=== PATIENT | male | born 1975 | race Caucasian/White ===

== ENCOUNTER → 2018-08-14 | Outpatient (CLI) | payer OTHER ==
--- NOTE | 2018-08-14 15:08 | REP ---
Clinical: Sternal pain. Technique: Oblique and lateral views of the sternum. Findings: Limited evaluation. Sternum is grossly unremarkable. If the patient remains symptomatic consider CT for further investigation. Impression: Grossly unremarkable sternal radiographs. Electronically Signed by Raza Plummer MD 08/14/2018 03:00 P
== END ==
LOC: M RAD 14:14
DX: R07.89 Other chest pain (principal)

== ENCOUNTER 2020-07-25 09:22 | Emergency (ER) | payer OTHER ==
[~2020-07-25] VITALS: Ht 185.4 cm; Wt 117.4 kg
--- OUTSIDE RECORDS SUMMARY | 2020-07-25 09:33 | CCD ---
Author Author [facility] Organization [facility] Address Unknown Phone Unavailable Support Name Relationship Address Phone [address] DA[place] Next Of Kin [id number] [facility] [address] [place] [address] [employer] Next Of Kin [id number] [facility] [address] [place] [address] DOE DAVIS Next Of Kin [address] [place] [address] [address] [place] [address] [place] Next Of Kin Unknown Unavailable [place] Next Of Kin [address] [place] [address] SUSAN, S LUMA Next Of Kin [address] [place] [address] HOME CATHERINE DAVIS Next Of Kin [id number] [place] [address] [address] [place] [address] Re-disclosure Warning The records that you are about to access may contain information from federally-assisted alcohol or drug abuse programs. If such information is present, then the following federally mandated warning applies: This information has been disclosed to you from records protected by federal confidentiality rules (42 CFR part 2). The federal rules prohibit you from making any further disclosure of this information unless further disclosure is expressly permitted by the written consent of the person to whom it pertains or as otherwise permitted by 42 CFR part 2. A general authorization for the release of medical or other information is NOT sufficient for this purpose. The Federal rules restrict any use of the information to criminally investigate or prosecute any alcohol or drug abuse patient.The records that you are about to access may contain highly sensitive health information, the redisclosure of which is protected by Article 27-F of the [facility] Public Health law. If you continue you may have access to information: Regarding HIV / AIDS; Provided by facilities licensed or operated by the [facility] Office of Mental Health; or Provided by the [facility] Office for People With Developmental Disabilities. If such information is present, then the following [facility] mandated warning applies: This information has been disclosed to you from confidential records which are protected by state law. State law prohibits you from making any further disclosure of this information without the specific written consent of the person to whom it pertains, or as otherwise permitted by law. Any unauthorized further disclosure in violation of state law may result in a fine or shelter sentence or both. A general authorization for the release of medical or other information is NOT sufficient authorization for further disc losure. Insurance Providers Payer name Policy type / Coverage type Policy ID Covered democrat ID Covered democrat's relationship to mills Policy Mills Plan Information [facility] [id number] [facility] [id number] [facility] ASG [id number] SELF PAY UNAVAILABLE Patient UNAVAILA BLE
[2020-07-25] MEDS ORDERED: NS 1,000 ML IV ONE (10:00)
[2020-07-25 10:03] LABS: BASO % 0.6 % (0.0-1.0); EOS # 0.2 10^3/uL (0.0-0.5); EOS % 2.2 % (0.0-3.0); HEMATOCRIT 44.5 % (42.0-52.0); HEMOGLOBIN 15.2 g/dl (13.5-17.5); LYMPH # 1.5 10^3/uL (1.5-5.0); LYMPH % 21.3 % (24.0-44.0); MEAN CORPUSCULAR HEMOGLOBIN 27.4 pg (27.0-33.0); MEAN CORPUSCULAR HGB CONC 34.2 g/dl (32.0-36.5); MEAN CORPUSCULAR VOLUME 80.2 fl (80.0-96.0); MONO # 0.5 10^3/uL (0.0-0.8); MONO % 7.4 % (0.0-5.0); NEUTROPHILS # 4.9 10^3/uL (1.5-8.5); NEUTROPHILS % 68.2 % (36.0-66.0); PLATELET COUNT, AUTOMATED 204 10^3/uL (150-450); RED BLOOD COUNT 5.55 10^6/uL (4.30-6.10); WHITE BLOOD COUNT 7.1 10^3/uL (4.0-10.0)
--- NOTE | 2020-07-25 10:08 | REP ---
INDICATION: blurry vission/elevated glucose. COMPARISON: None. TECHNIQUE: Helical scanning is acquired. 5 mm axial images were reformatted. Coronal MPR images were generated. FINDINGS: Bone window settings demonstrate an intact bony calvarium. There is no evidence of skull fracture or incidental bony calvarial lesion. The visualized paranasal sinuses appear clear. No intraorbital abnormality is seen. On soft tissue window setting images; the lateral, third, and fourth ventricles are normal in size and position. Hurtado-white differentiation pattern is normal above and below the tentorium. There are is no evidence of intracranial hemorrhage. No mass, edema, infarction, or midline shift is seen. No extra-axial fluid collection is appreciated. IMPRESSION: Negative noncontrast head CT. <Electronically signed by Gabe Grace > 07/25/20 [id number]
--- OUTSIDE RECORDS SUMMARY | 2020-07-25 10:12 | CCD ---
Author Author [facility] Organization [facility] Address Unknown Phone Unavailable Support Name Relationship Address Phone [address] DAIRY Next Of Kin [id number] [facility] [address] [place] [address] Next Of Kin [address] [facility] [address] [place] [address] DOE DAVIS Next Of Kin [address] [place] [address] [address] [place] [address] [place] Next Of Kin Unknown Unavailable MARKSDAIRY Next Of Kin [address] [place] [address] SUSAN, S LUMA Next Of Kin [address] [place] [address] HOME CATHERINE DAVIS Next Of Kin [id number] [place] [address] [address] [place] [address] Re-disclosure Warning The records that you are [...] by Article 27-F of the [facility] Public Health law. If you continue you may have access to information: Regarding HIV / AIDS; Provided by facilities licensed or operated by the [facility] Office of Mental Health; or Provided by the [facility] Office for People With Developmental Disabilities. If such information is present, then the following [facility] mandated warning applies: This information has been [...] law may result in a fine or halfway sentence or both. A general authorization for the release of medical or other information is NOT sufficient authorization for further disc losure. Insurance Providers Payer name Policy type / Coverage type Policy ID Covered green party ID Covered green party's relationship to mills Policy Mills Plan Information [facility] [id number] [facility] [id number] [facility] ASG [id number] SELF PAY UNAVAILABLE Patient UNAVAILA BLE
[2020-07-25] MEDS ORDERED: HumuLIN R (REGULAR) INSULIN (NovoLIN R) **100U/ML** PER UNIT SC STA (10:13)
[2020-07-25 10:25] LABS: OSMOLALITY SERUM 304 MOSM/KG (275-295)
[2020-07-25 10:47] LABS: ACETONE/KETONE 7.11 MG/DL (<2.81); ALBUMIN 3.5 GM/DL (3.2-5.2); ALT/SGPT 18 U/L (12-78); BILIRUBIN,DIRECT < 0.1 MG/DL (0.0-0.2); BILIRUBIN,TOTAL 0.3 MG/DL (0.2-1.0); BLOOD UREA NITROGEN 18 MG/DL (7-18); CALCIUM LEVEL 9.7 MG/DL (8.5-10.1); CARBON DIOXIDE LEVEL 27 MEQ/L (21-32); CHLORIDE LEVEL 98 MEQ/L (98-107); CREATININE FOR GFR 0.83 MG/DL (0.70-1.30); GLOMERULAR FILTRATION RATE > 60.0 (>60); GLUCOSE, FASTING 457 MG/DL (70-100); LIPASE 170 U/L (73-393); POTASSIUM SERUM 4.4 MEQ/L (3.5-5.1); SODIUM LEVEL 133 MEQ/L (136-145); TOTAL PROTEIN 7.3 GM/DL (6.4-8.2)
[2020-07-25 11:25] LABS: HEMOGLOBIN A1c 13.2 %
[2020-07-25] MEDS ORDERED: HumaLOG INSULIN (NovoLOG) PER UNIT SC STA (12:36)
[2020-07-25] MEDS ORDERED: metFORMIN (GLUCOPHAGE) 500 MG TAB PO ONE (12:45)
[2020-07-25] MEDS ORDERED: METF500T13 PO (13:51)
[2020-07-25] MEDS ORDERED: LISI20TA33 PO (13:51)
[2020-07-25 14:06] VITALS: BP 153/107
== END 2020-07-25 14:14 | disposition home or self-care (01) ==
LOC: M ED 09:22
DX: E11.9 Type 2 diabetes mellitus without complications (principal); I10 Essential (primary) hypertension; Z79.899 Other long term (current) drug therapy; Z79.84 Long term (current) use of oral hypoglycemic drugs

== ENCOUNTER → 2020-11-12 | Outpatient (REF) | payer OTHER ==
[~2020-11-12] MED LIST: ERGO500029; JARD1TAB3; LISI20TA33 PO; LISI30TA4; METF500T13 PO; TELM1TAB37 PO; TRES1INJ2
[2020-11-12 15:51] LABS: ALBUMIN 3.5 GM/DL (3.2-5.2); ALT/SGPT 15 U/L (12-78); BILIRUBIN,TOTAL 0.5 MG/DL (0.2-1.0); BLOOD UREA NITROGEN 12 MG/DL (7-18); CARBON DIOXIDE LEVEL 25 MEQ/L (21-32); CHLORIDE LEVEL 105 MEQ/L (98-107); CHOLESTEROL LEVEL 183 MG/DL (<200); CHOLESTEROL RISK RATIO 3.978 (<5); CREATININE FOR GFR 0.54 MG/DL (0.70-1.30); FREE T4 1.02 NG/DL (0.76-1.46); GLOMERULAR FILTRATION RATE > 60.0 (>60); GLUCOSE, FASTING 162 MG/DL (70-100); HDL CHOLESTEROL 46 MG/DL (>40); LDL CHOLESTEROL 87 MG/DL (<100); NON-HDL-C 137 MG/DL; POTASSIUM SERUM 3.4 MEQ/L (3.5-5.1); SODIUM LEVEL 138 MEQ/L (136-145); TOTAL 25(OH) VITAMIN D 12.7 NG/ML (30.0-100.0); TOTAL PROTEIN 7.3 GM/DL (6.4-8.2); TRIGLYCERIDES LEVEL 250 MG/DL (<150)
[2020-11-12 16:38] LABS: HEMOGLOBIN A1c 10.2 %
[2020-11-12 16:51] LABS: MAU/CREAT RATIO 1007.6 MCG/MG (0.0-30.0)
== END ==
LOC: M PLALAB 13:34
PROVIDERS: ATTEND Nurse Practitioner Family
DX: E55.9 Vitamin D deficiency, unspecified (principal); E11.9 Type 2 diabetes mellitus without complications; Z13.220 Encounter for screening for lipoid disorders

== ENCOUNTER 2020-11-21 10:22 | Emergency (ER) | payer OTHER ==
[~2020-11-21] VITALS: Ht 190.5 cm; Wt 124.8 kg
[~2020-11-21 10:22] MED LIST changes: -ERGO500029; -JARD1TAB3; -LISI30TA4; -TELM1TAB37 PO; -TRES1INJ2
[2020-11-21] MEDS ORDERED: TRES1INJ2 (10:35)
[2020-11-21] MEDS ORDERED: VITA50005 (10:35)
[2020-11-21] MEDS ORDERED: LISI30TA4 (10:35)
[2020-11-21] MEDS ORDERED: JARD1TAB3 (10:35)
[2020-11-21] MEDS ORDERED: TELM1TAB37 PO (12:49)
[2020-11-21 13:00] VITALS: BP 138/98
--- NOTE | 2020-11-21 21:07 | ECGEPIP ---
[facility] - ED Test Date: 2020-11-21 Pat Name: RUY DAVIS Department: Room: - Gender: Male Regional Merchandising Manager: LILIBETH : 1975 Requested By: Andrea Loaiza Order Number: [id number] Reading MD: Andrea Dumont Measurements Intervals [place] Rate: 81 P: 58 [place]: 176 QRS: -29 QRSD: 90 T: 32 QT: 378 QTc: 439 Interpretive Statements Normal sinus rhythm Nonspecific T wave abnormality NO PRIORS FOR COMPARISON Electronically Signed on 11-21-2020 21:07:47 EDT by Andrea Dumont
== END 2020-11-21 13:00 | disposition home or self-care (01) ==
LOC: M ED 10:22
DX: I10 Essential (primary) hypertension (principal); E11.9 Type 2 diabetes mellitus without complications; Z79.899 Other long term (current) drug therapy; Z79.4 Long term (current) use of insulin

== ENCOUNTER → 2020-11-26 | Outpatient (REF) | payer OTHER ==
[~2020-11-26] MED LIST changes: +JARD1TAB3; +LISI30TA4; +TELM1TAB37 PO; +TRES1INJ2; +VITA50005
[2020-11-26 18:22] LABS: ALBUMIN 3.7 GM/DL (3.2-5.2); BLOOD UREA NITROGEN 14 MG/DL (7-18); CALCIUM LEVEL 9.1 MG/DL (8.5-10.1); CARBON DIOXIDE LEVEL 24 MEQ/L (21-32); CHLORIDE LEVEL 100 MEQ/L (98-107); CREATININE FOR GFR 0.63 MG/DL (0.70-1.30); GLOMERULAR FILTRATION RATE > 60.0 (>60); GLUCOSE, FASTING 201 MG/DL (70-100); POTASSIUM SERUM 3.7 MEQ/L (3.5-5.1); SODIUM LEVEL 136 MEQ/L (136-145)
== END ==
LOC: M PLALAB 14:37
PROVIDERS: ATTEND Nurse Practitioner Family
DX: E11.9 Type 2 diabetes mellitus without complications (principal); I10 Essential (primary) hypertension

== ENCOUNTER → 2020-12-10 | Outpatient (CLI) | payer OTHER ==
[~2020-12-10] MED LIST changes: +ERGO500029; -VITA50005
--- NOTE | 2020-12-10 09:56 | REP ---
INDICATION: HTN. COMPARISON: None. TECHNIQUE: Bilateral renal ultrasound with bilateral renal arterial Doppler FINDINGS: Multiple ultrasonographic images of the right kidney show the right kidney to measure 15.4 x 8 x 5.4 cm. The renal cortical echotexture is unremarkable. There are no masses. There is good corticomedullary differentiation. There is no hydronephrosis. There are no perinephric fluid collections. Multiple ultrasonographic images of the left kidney show the left kidney to measure 15.2 x 7.4 x 6.7 cm. The renal cortical echotexture is unremarkable. There are no masses. There is good corticomedullary differentiation. There is no hydronephrosis. There are no perinephric fluid collections. The peak aortic systolic velocity is 103 cm/S EC On the right: The peak renal artery systolic velocity is 150 cm/S EC The renal aortic ratio is 1.46 The resistive index in the upper pole is 0.64, midpole 0.56, lower pole 0.58 The acceleration time in the upper pole is 0.046, midpole 0.040, lower pole 0.044 On the left: The peak renal artery systolic velocity is 102 cm/S EC The renal aortic ratio is 0.99 The resistive index upper pole 0.58, midpole 0.53, lower pole 0.55 Acceleration time upper pole 0.042, midpole 0.032, lower pole 0.042 IMPRESSION: Unremarkable renal ultrasonography. There is no evidence of renal arterial stenosis. <Electronically signed by Jatinder Palomo > 12/10/20 0953
== END ==
LOC: M RAD 08:46
PROVIDERS: ATTEND Nurse Practitioner Family
DX: I10 Essential (primary) hypertension (principal)

== ENCOUNTER → 2021-04-11 | Outpatient (CLI) | payer OTHER ==
[2021-04-11 11:09] LABS: ALBUMIN 3.3 GM/DL (3.2-5.2); ALT/SGPT 21 U/L (12-78); BILIRUBIN,TOTAL 0.5 MG/DL (0.2-1.0); BLOOD UREA NITROGEN 9 MG/DL (7-18); CALCIUM LEVEL 8.5 MG/DL (8.5-10.1); CARBON DIOXIDE LEVEL 22 MEQ/L (21-32); CHLORIDE LEVEL 102 MEQ/L (98-107); CHOLESTEROL LEVEL 244 MG/DL (<200); CHOLESTEROL RISK RATIO 6.594 (<5); CREATININE FOR GFR 0.63 MG/DL (0.70-1.30); GLOMERULAR FILTRATION RATE > 60.0 (>60); GLUCOSE, FASTING 294 MG/DL (70-100); HDL CHOLESTEROL 37 MG/DL (>40); NON-HDL-C 207 MG/DL; POTASSIUM SERUM 3.8 MEQ/L (3.5-5.1); SODIUM LEVEL 134 MEQ/L (136-145); TOTAL PROTEIN 7.4 GM/DL (6.4-8.2); TRIGLYCERIDES LEVEL 1133 MG/DL (<150)
[2021-04-11 11:26] LABS: CREATININE, URINE 45.9 MG/DL; MAU/CREAT RATIO 862.7 MCG/MG (0.0-30.0)
[2021-04-11 11:49] LABS: HEMOGLOBIN A1c 12.1 %
== END ==
LOC: M LAB 08:57
PROVIDERS: ATTEND Nurse Practitioner Family
DX: E78.5 Hyperlipidemia, unspecified (principal); E11.9 Type 2 diabetes mellitus without complications

== ENCOUNTER 2021-12-21 06:14 | Emergency (ER) | payer OTHER ==
[~2021-12-21] VITALS: Ht 188 cm; Wt 118.2 kg
[2021-12-21] MEDS ORDERED: NOVOINJ3 SC (06:35)
[2021-12-21] MEDS ORDERED: NS 1,000 ML IV ONE ×2 (07:25→08:45)
[2021-12-21 08:15] LABS: BASO % 0.3 % (0.0-1.0); EOS # 0.1 10^3/uL (0.0-0.5); EOS % 1.3 % (0.0-3.0); HEMATOCRIT 46.8 % (42.0-52.0); LYMPH # 0.5 10^3/uL (1.5-5.0); LYMPH % 7.8 % (24.0-44.0); MEAN CORPUSCULAR HEMOGLOBIN 27.2 pg (27.0-33.0); MEAN CORPUSCULAR HGB CONC 34.2 g/dl (32.0-36.5); MEAN CORPUSCULAR VOLUME 79.6 fl (80.0-96.0); MONO # 0.4 10^3/uL (0.0-0.8); MONO % 6.2 % (2.0-8.0); NEUTROPHILS # 5.7 10^3/uL (1.5-8.5); NEUTROPHILS % 84.1 % (36.0-66.0); PLATELET COUNT, AUTOMATED 176 10^3/uL (150-450); RED BLOOD COUNT 5.88 10^6/uL (4.30-6.10); WHITE BLOOD COUNT 6.8 10^3/uL (4.0-10.0)
[2021-12-21 08:34] LABS: ALBUMIN 3.2 GM/DL (3.2-5.2); ALT/SGPT 14 U/L (12-78); BILIRUBIN,DIRECT 0.2 MG/DL (0.0-0.2); BILIRUBIN,TOTAL 0.7 MG/DL (0.2-1.0); BLOOD UREA NITROGEN 11 MG/DL (7-18); CALCIUM LEVEL 8.5 MG/DL (8.5-10.1); CARBON DIOXIDE LEVEL 20 MEQ/L (21-32); CHLORIDE LEVEL 103 MEQ/L (98-107); CREATININE FOR GFR 0.64 MG/DL (0.70-1.30); GLOMERULAR FILTRATION RATE > 60.0 (>60); GLUCOSE, FASTING 338 MG/DL (70-100); POTASSIUM SERUM 3.9 MEQ/L (3.5-5.1); SODIUM LEVEL 134 MEQ/L (136-145)
[2021-12-21 10:02] VITALS: BP 148/91
== END 2021-12-21 10:04 | disposition home or self-care (01) ==
LOC: M ED 06:14
DX: E11.65 Type 2 diabetes mellitus with hyperglycemia (principal); R19.7 Diarrhea, unspecified; I10 Essential (primary) hypertension; Z79.899 Other long term (current) drug therapy; Z79.84 Long term (current) use of oral hypoglycemic drugs; Z79.4 Long term (current) use of insulin; F17.220 Nicotine dependence, chewing tobacco, uncomplicated

== ENCOUNTER 2023-12-30 09:08 | Emergency (ER) | payer OTHER ==
[~2023-12-30] VITALS: Ht 185.4 cm; Wt 107.7 kg
[~2023-12-30 09:08] MED LIST changes: +NOVOINJ3 SC
[2023-12-30] MEDS ORDERED: LISI40TA4 PO (09:26)
[2023-12-30] MEDS ORDERED: METO50TA7 PO (09:26)
[2023-12-30] MEDS ORDERED: AMOX875T2 PO (12:06)
[2023-12-30] MEDS ORDERED: ONDA-282 PO (12:06)
[2023-12-30] MEDS ORDERED: MECL50TA PO (12:06)
[2023-12-30 12:37] VITALS: BP 155/90; TEMP 97.1; O2SAT 96
== END 2023-12-30 12:38 | disposition home or self-care (01) ==
LOC: M ED 09:08
DX: H66.001 Acute suppurative otitis media without spontaneous rupture of ear drum, right ear (principal); J06.9 Acute upper respiratory infection, unspecified; I10 Essential (primary) hypertension; Z79.2 Long term (current) use of antibiotics; Z79.84 Long term (current) use of oral hypoglycemic drugs; Z79.899 Other long term (current) drug therapy

== ENCOUNTER 2024-05-30 11:18 | Emergency (ER) | payer OTHER ==
[~2024-05-30] VITALS: Ht 188 cm; Wt 111.0 kg
[~2024-05-30 11:18] MED LIST changes: +AMOX875T2 PO; +LISI40TA4 PO; +MECL50TA PO; +METO50TA7 PO; +ONDA-282 PO
[2024-05-30] MEDS ORDERED: LANTINJ4 SC (11:42)
[2024-05-30] MEDS: TETRACAINE 0.5% OPHTH SOLN 4ML OD ONE (16:50)
[2024-05-30 17:54] LABS: BASO % 0.6 % (0.0-1.0); EOS # 0.3 10^3/uL (0.0-0.5); EOS % 3.7 % (0.0-3.0); HEMATOCRIT 43.9 % (42.0-52.0); HEMOGLOBIN 15.7 g/dl (13.5-17.5); LYMPH # 2.1 10^3/uL (1.5-5.0); LYMPH % 30.7 % (24.0-44.0); MEAN CORPUSCULAR HEMOGLOBIN 28.2 pg (27.0-33.0); MEAN CORPUSCULAR HGB CONC 35.8 g/dl (32.0-36.5); MEAN CORPUSCULAR VOLUME 78.8 fl (80.0-96.0); MONO # 0.7 10^3/uL (0.0-0.8); MONO % 10.1 % (2.0-8.0); NEUTROPHILS # 3.7 10^3/uL (1.5-8.5); NEUTROPHILS % 54.6 % (36.0-66.0); PLATELET COUNT, AUTOMATED 192 10^3/uL (150-450); RED BLOOD COUNT 5.57 10^6/uL (4.30-6.10); WHITE BLOOD COUNT 6.8 10^3/uL (4.0-10.0)
[2024-05-30 18:14] LABS: CK-MB VALUE MASS 1.1 NG/ML (<3.6)
[2024-05-30 18:16] LABS: C REACTIVE PROTEIN QUANTITATIV < 0.50 MG/DL (<1.0)
[2024-05-30 18:17] LABS: CPK CREATINE PHOSPHOKINASE 58 U/L (46-171); MB/CK RELATIVE INDEX 1.89 (< OR =4)
[2024-05-30 18:18] LABS: THYROID STIMULATING HORMONE 2.469 uIU/ML (0.55-4.78); THYROXINE (T4) 8.5 UG/DL (4.5-10.9)
[2024-05-30 18:26] LABS: ERYTHROCYTE SEDIMENTATION RATE 30 mm/hr (0-15)
[2024-05-30 18:34] LABS: ALBUMIN 3.2 G/DL (3.2-5.2); ALKALINE PHOSPHATASE 212 U/L (40-129); ALT/SGPT 11 U/L (7.0-40); AST/SGOT < 8 U/L (<34); BILIRUBIN,DIRECT < 0.1 MG/DL (<0.4); BILIRUBIN,TOTAL 0.2 MG/DL (0.3-1.2); BLOOD UREA NITROGEN 9 MG/DL (9-23); CALCIUM LEVEL 9.4 MG/DL (8.5-10.1); CARBON DIOXIDE LEVEL 21 MMOL/L (20-31); CHLORIDE LEVEL 103 MMOL/L (98-107); CREATININE FOR GFR 0.36 MG/DL (0.70-1.30); GLOMERULAR FILTRATION RATE > 60.0 (>60); GLUCOSE, FASTING 408 MG/DL (60-100); POTASSIUM SERUM 3.8 MMOL/L (3.5-5.1); SODIUM LEVEL 134 MMOL/L (136-145); TOTAL PROTEIN 6.8 G/DL (5.7-8.2)
[2024-05-30] MEDS ORDERED: ISOVUE-370 76% 100ML VIAL As Ordered ONE (18:40)
[2024-05-30] MEDS: NS 1,000 ML IV ONE (19:37)
[2024-05-30] MEDS: CIPROFLOXACIN 0.3% OPHTH SOLN 2.5ML OS ONE (20:39)
[2024-05-30 20:45] VITALS: BP 123/75; TEMP 96.8; O2SAT 98
[2024-05-30] MEDS ORDERED: CIPR0.3S37 OD (20:52)
== END 2024-05-30 21:00 | disposition home or self-care (01) ==
LOC: M ED 11:18
DX: E11.65 Type 2 diabetes mellitus with hyperglycemia (principal); I10 Essential (primary) hypertension; H57.11 Ocular pain, right eye; I44.4 Left anterior fascicular block; Z79.4 Long term (current) use of insulin; Z79.84 Long term (current) use of oral hypoglycemic drugs; Z79.2 Long term (current) use of antibiotics
CPT/HCPCS: 70481; 71046; 80048; 80076; 82550; 82553; 83605; 83880; 84436; 84443; 84484; 85025; 85652; 86140; 87486; 87581; 87633; 87798; 93005; 96360; 99285; Q9967

== ENCOUNTER → 2024-06-11 | Outpatient (CLI) | payer OTHER ==
[~2024-06-11] MED LIST changes: +CIPR0.3S37 OD; +LANTINJ4 SC
[2024-06-11 14:35] LABS: BASO # 0.1 10^3/uL (0.0-0.2); BASO % 0.5 % (0.0-1.0); EOS # 0.2 10^3/uL (0.0-0.5); EOS % 2.5 % (0.0-3.0); HEMATOCRIT 49.1 % (42.0-52.0); HEMOGLOBIN 17.5 g/dl (13.5-17.5); LYMPH # 2.1 10^3/uL (1.5-5.0); LYMPH % 21.3 % (24.0-44.0); MEAN CORPUSCULAR HEMOGLOBIN 28.9 pg (27.0-33.0); MEAN CORPUSCULAR HGB CONC 35.6 g/dl (32.0-36.5); MEAN CORPUSCULAR VOLUME 81.2 fl (80.0-96.0); MONO # 0.8 10^3/uL (0.0-0.8); MONO % 8.1 % (2.0-8.0); NEUTROPHILS # 6.5 10^3/uL (1.5-8.5); NEUTROPHILS % 67.2 % (36.0-66.0); PLATELET COUNT, AUTOMATED 235 10^3/uL (150-450); RED BLOOD COUNT 6.05 10^6/uL (4.30-6.10); WHITE BLOOD COUNT 9.7 10^3/uL (4.0-10.0)
[2024-06-14 08:17] LABS: ANA SCREEN, IFA NEGATIVE (NEGATIVE)
[2024-06-14 12:22] LABS: QuantiFERON-TB Gold Plus NEGATIVE (NEGATIVE)
[2024-06-14 15:57] LABS: ANGIOTENSIN 1 CONVERTING ENZYM 46 U/L (9-67)
[2024-06-14 17:57] LABS: LYME TOTAL ANTIBODY CIA <= 0.90 Index (<=0.90)
[2024-06-14 21:12] LABS: LYSOZYME 4.8 mcg/mL (5.0-11.0)
== END ==
LOC: M LAB 06-08 15:25 → M RAD 13:26 → M LAB 13:26
PROVIDERS: ATTEND Ophthalmology
DX: H44.111 Panuveitis, right eye (principal)

== ENCOUNTER 2025-06-10 08:03 | Day surgery (SDC) | payer OTHER ==
[~2025-06-10] VITALS: Ht 186.7 cm; Wt 101.9 kg
[~2025-06-10 08:03] MED LIST changes: +DAPA10TA5 PO; +LISI40TA10 PO; -LISI40TA4 PO; +LR 1,000 ML IV SCH; +METF10004 PO; +METO1TAB32 PO; +MIDAZOLAM INJ 2 MG/2 ML VIAL As Ordered ONE
[2025-06-10] MEDS: FLURBIPROFEN 0.03% OPHTH SOLN 2.5 ML OD SCH (08:51)
[2025-06-10] MEDS: CYCLOPENTOLATE 1% OPHTH SOLN 2 ML BTL OD SCH (08:51)
[2025-06-10] MEDS: PHENYLEPHRINE 2.5% OPHTH SOL 2ML OD SCH (08:51)
[2025-06-10] MEDS: TETRACAINE 0.5% OPHTH SOLN 4ML OD SCH (08:51)
[2025-06-10] MEDS ORDERED: GLUCOSE 4 GM CHEW PO PRN (09:00)
[2025-06-10] MEDS ORDERED: DEXTROSE 50% 50 ML SYRINGE IV PRN (09:00)
[2025-06-10] MEDS ORDERED: GLUCAGON INJ 1 MG VIAL SC PRN (09:00)
[2025-06-10] MEDS: INSULIN LISPRO (NovoLOG) PER UNIT SC PRN (09:23)
[2025-06-10] MEDS: LIDOCAINE 1% SDV 5 ML VIAL As Ordered ONE (10:02)
[2025-06-10] MEDS: CEFUROXIME 1 MG/0.1 ML INTRACAMERAL INJ As Ordered ONE (10:02)
[2025-06-10 10:33] VITALS: BP 130/88; TEMP 98; O2SAT 100
== END 2025-06-10 10:57 | disposition home or self-care (01) ==
LOC: M SDC 08:03
PROVIDERS: ATTEND Ophthalmology
DX: E11.36 Type 2 diabetes mellitus with diabetic cataract (principal); H25.21 Age-related cataract, morgagnian type, right eye; I10 Essential (primary) hypertension; Z79.899 Other long term (current) drug therapy; Z79.4 Long term (current) use of insulin; Z79.84 Long term (current) use of oral hypoglycemic drugs; F17.220 Nicotine dependence, chewing tobacco, uncomplicated
CPT/HCPCS: 66984; J0697; J1815; J2250; J3010; V2632